=== PATIENT | female | born 1985 | race American Indian/Alaskan Native ===

== ENCOUNTER 2017-08-12 20:04 | Inpatient (IN) | payer MEDICAID ==
[2017-08-12] MEDS ORDERED: POLYCILLIN/NS 2 GM/100 ML 2 GM/100 ML BAG IV ONE ×2 (20:57→21:26)
[2017-08-12] MEDS ORDERED: LACTATED RINGERS 1,000 ML ONE (20:57)
--- NOTE | 2017-08-12 21:25 | History and Physical Report ---
History of Present Illness Date of examination: 08/12/17 Date of admission: 08/12/17 21:02 Chief complaint: Painful contractions History of present illness: 32-year-old at 39+ weeks' gestation presents in active labor, she is a [facility] patient. course has been unremarkable per patient. 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: denies: chlamydia, gonorrhea, hepatitis B, hepatitis C, herpes, HIV , syphilis - Obstetrical History Expected Date of Delivery: 08/16/17 Actual Gestation: 39 Week(s) 3 Day(s) : 6 Para: 5 Medications and Allergies Allergies Allergy/AdvReac Type Severity Reaction Status Date / Time No Known Allergies Allergy Verified 05/03/16 09:03 Home Medications Medication Instructions Recorded Confirmed Last Taken Type Biotin/Keratin [Biotin Plus 1 each PO DAILY 05/03/16 05/03/16 Unknown History Keratin Tablet] Ferrous Sulfate [Feosol] 325 mg PO QDAY 05/03/16 05/03/16 05/02/16 History Vit-Fe Fumar-FA [ 1 tab PO QDAY 05/03/16 05/03/16 05/02/16 History Vitamin] Review of Systems Constitutional: no fever, no chills Cardiovascular: no chest pain, no syncope, no lightheadedness, no shortness of breath, no dyspnea on exertion, no high blood pressure, no decreased exercise tolerance Respiratory: no cough, no excessive sputum, no shortness of breath, no dyspnea on exertion Gastrointestinal: no abdominal pain, no nausea, no vomiting Genitourinary: contractions, no vaginal bleeding, no vaginal discharge, no leakage of fluid - Vital Signs Vital signs: Vital Signs Pulse BP 77 135/80 08/12/17 20:26 08/12/17 20:26 Temp Pulse Resp BP Pulse Ox 108 H 135/80 100 08/12/17 21:21 08/12/17 20:26 08/12/17 21:21 - Physical Exam Abdomen: Positive: normal appearance, soft. Negative: distention, tenderness, guarding, rigidity Genitourinary (Female): Positive: normal external genitalia Uterus: Positive: enlarged (EFW ~ 3400). Negative: tender Adnexa: both: normal Extremities: Positive: normal - Obstetrical FHR: category 1 Cervical Dilatation: 8.5 station: -1 Results All other labs normal. Assessment and Plan A: 32-year-old G65 at 39+3 in active labor -Cat 1 tracing P: -Admit -Routine labs -Epidural when necessary -Anticipate normal vaginal delivery - Patient Problems (1) 39 weeks gestation of Current Visit: Yes Status: Acute (2) Active labor at term Current Visit: Yes Status: Acute (3) Grand multipara in labor Current Visit: Yes Status: Acute Qualifiers: Trimester: T
[2017-08-12] MEDS ORDERED: SUBLIMAZE IV PRN (21:26)
[2017-08-12] MEDS ORDERED: BRETHINE IVP PRN (21:26)
[2017-08-12] MEDS ORDERED: BRETHINE SUB-Q PRN (21:26)
[2017-08-12] MEDS ORDERED: MINERAL OIL PO PRN (21:26)
[2017-08-12] MEDS ORDERED: ePHEDrine SULFATE IV PRN (21:26)
[2017-08-12] MEDS ORDERED: XYLOCAINE 2% INFILTRATI ONE (21:26)
[2017-08-12] MEDS ORDERED: CYTOTEC ONE (21:50)
[2017-08-12] MEDS ORDERED: LACTATED RINGERS 1,000 ML IV SCH (22:00)
[2017-08-12] MEDS ORDERED: PITOCin/NS 30 UNIT/500ML 30 UNITS/500 ML BAG IV SCH ×2 (22:00)
[2017-08-12] MEDS ORDERED: PITOCin/NS 20 UNIT/1000ML DRIP 20 UNITS/1,000 ML BAG IV SCH (22:00)
[2017-08-12] MEDS ORDERED: ZOFRAN IV PRN (22:13)
[2017-08-12] MEDS ORDERED: LANSINOH TP PRN (22:13)
[2017-08-12] MEDS ORDERED: PHENERGAN PR PRN (22:13)
[2017-08-12] MEDS ORDERED: DULCOLAX PR PRN (22:13)
[2017-08-12] MEDS ORDERED: PHENERGAN PO PRN (22:13)
[2017-08-12] MEDS ORDERED: ANUCORT-HC PR PRN (22:13)
[2017-08-12] MEDS ORDERED: TUCKS PAD TP PRN (22:13)
[2017-08-12] MEDS ORDERED: BENADRYL PO PRN (22:13)
[2017-08-12] MEDS ORDERED: MILK OF MAGNESIA PO PRN (22:13)
[2017-08-12] MEDS ORDERED: CYTOTEC PR ONE (22:13)
[2017-08-12] MEDS ORDERED: TYLENOL PO PRN (22:13)
--- NOTE | 2017-08-12 22:13 | Procedure Note ---
OB Delivery Note - Delivery Date of Delivery: 08/12/17 Surgeon: HALINA MORGAN Estimated blood loss: 100cc - Vaginal Delivery presentation: vertex Delivery position: OA Intrapartum events: none Delivery induction: none Delivery monitor: external FHT, external uterine Route of delivery: Delivery placenta: spontaneous Delivery cord: 3 umbilical vessels Episiotomy: none Delivery laceration: none Anesthesia: none - A at 1 minute: 9 at 5 minutes: 9 Infant Gender: Male (Del @ 22:05, weight is 5 lbs. 15 oz. or 2679 g)
[2017-08-12 22:20] LABS: Hematocrit 34.8 % (30.3-42.9); Hemoglobin 11.3 gm/dl (10.1-14.3); Mean Corpuscular HGB Conc 33 % (30-34); Mean Corpuscular Hemoglobin 29 pg (28-32); Mean Corpuscular Volume 90 fl (79-97); Platelet Count 170 K/mm3 (140-440); Red Blood Count 3.86 M/mm3 (3.65-5.03); Red Cell Distribution Width 14.4 % (13.2-15.2)
[2017-08-12] MEDS ORDERED: TYLENOL ONE (22:22)
[2017-08-12] MEDS: TYLENOL PO PRN (22:35)
[2017-08-12] MEDS ORDERED: MAGNESIUM SULFATE 4GM/100ML 4 GM/100 ML BAG IV ONE (22:50)
[2017-08-12] MEDS ORDERED: MAGNESIUM SULFATE 40GM/1000ML 40 GM/1,000 ML BAG IV SCH (23:00)
[2017-08-12] MEDS ORDERED: SODIUM CHLORIDE FLUSH SYRINGE 10 ML IV PRN (23:00)
[2017-08-13] MEDS ORDERED: POLYCILLIN/NS 1 GM/50 ML 1 GM/50 ML BAG IV SCH (01:00)
[2017-08-13] MEDS: MOTRIN PO SCH ×3 (03:11→18:04)
--- NOTE | 2017-08-13 06:49 | Event Note ---
Date: 08/13/17 Late note: Patient with sudden increase in blood pressure after delivery, BP ranged 150-160 /70 to 90s. She was asymptomatic for pre-E. magnesium was started last night per protocol. On review this morning, blood pressure at acceptable levels and she is asymptomatic. Will stop magnesium at this time.
[2017-08-13] MEDS: NORCO 5/325 PO PRN (08:49)
--- NOTE | 2017-08-13 09:32 | Progress Note ---
Assessment and Plan A: PPD #1 -stable P: Discharge home in am Subjective - Subjective Date of service: 08/13/17 Patient reports: appetite normal [place]: doing well Objective - Vital Signs Latest vital signs: Vital Signs Temp Pulse Resp BP BP Pulse Ox 08/13/17 06:00 97.8 F 69 20 140/89 08/13/17 04:25 97.8 F 70 20 129/86 08/13/17 02:30 98.6 F 81 20 124/79 08/13/17 00:45 98.8 F 74 20 129/86 08/13/17 00:18 72 132/79 08/13/17 00:03 83 135/80 08/13/17 00:00 81 98 08/12/17 23:55 83 99 08/12/17 23:50 85 99 08/12/17 23:48 83 129/77 08/12/17 23:45 76 98 08/12/17 23:40 69 98 08/12/17 23:35 75 98 08/12/17 23:11 76 146/83 08/12/17 22:56 80 151/77 08/12/17 22:49 64 152/85 08/12/17 22:41 75 149/77 08/12/17 22:29 83 99 08/12/17 22:26 77 163/94 08/12/17 22:24 81 99 08/12/17 22:02 113 H 99 08/12/17 21:57 104 H 100 08/12/17 21:53 98.5 F 99 H 139/93 08/12/17 21:36 94 H 100 08/12/17 21:33 83 L 08/12/17 21:31 111 H 100 08/12/17 21:30 95 H 139/93 08/12/17 21:26 96 H 100 08/12/17 21:21 108 H 100 08/12/17 21:16 100 H 98 08/12/17 21:11 86 100 08/12/17 21:06 91 H 99 08/12/17 21:01 91 H 100 08/12/17 20:47 90 94 08/12/17 20:46 81 91 08/12/17 20:40 81 93 08/12/17 20:38 83 99 08/12/17 20:33 90 98 08/12/17 20:28 88 99 08/12/17 20:26 77 135/80 Intake and Output 08/12/17 08/13/17 08/13/17 22:59 06:59 14:59 Intake Total 240 Output Total 900 Balance -660 Intake: Oral 240 Output: Urine 900 Uretheral ([place]) 900 Other: Total, Intake Amount 120 Weight 170 lb Estimated Blood Loss 100 - Exam Breasts: Present: deferred Cardiovascular: Present: Regular rate Lungs: Present: Clear to auscultation Abdomen: Present: soft Vulva: both: normal Uterus: Present: fundal height below umbilicus Extremities: Present: normal Deep Tendon Reflex Grade: Normal +2
--- NOTE | 2017-08-13 09:34 | Discharge Summary ---
Providers - Providers Date of Admission: 08/12/17 21:02 Date of discharge: 08/14/17 Attending physician: LISSY FLETCHER MD Primary care physician: LISSY FLETCHER MD Hospitalization Reason for admission: active labor Delivery: Episiotomy: none Laceration: none complications: none Discharge diagnosis: IUP at term delivered [place] baby: male Condition at discharge: Good Disposition: DC-01 TO HOME OR SELFCARE Plan - Discharge Medications Prescriptions: HYDROcodone/APAP 5-325 [[place] 5/325] 1 each PO Q6HR PRN #7 tablet PRN Reason: Pain Ibuprofen [Motrin 600 MG tab] 600 mg PO Q8H PRN #30 tablet PRN Reason: Pain Multivitamin with Iron [Multivitamins with Iron] 1 each PO DAILY #30 tablet - Provider Discharge Summary Activity: routine, no sex for 6 weeks, no strenuous exercise Diet: routine Additional instructions: [] Smoking cessation referral if applicable(refer to patient education folder for contact #) [] Refer to [facility] Booklet Call your doctor immediately for: * Fever > 100.5 * Heavy vaginal bleeding ( >1 pad per hour) * Severe persistent headache * Shortness of breath * Reddened, hot, painful area to leg or breast * Drainage or odor from incision. * Keep incision clean and dry at all times and follow doctor's instructions regarding bathing/showering - Follow up plan Follow up: LISSY FLETCHER MD [Primary Care Provider] - 6 Weeks
[2017-08-13] MEDS ORDERED: Fluarix Quad 2017-2018(36 MOS+) IM ONE (12:00)
[2017-08-13] MEDS: PRENATAL VITAMIN PO SCH (12:27)
[2017-08-13] MEDS: COLACE PO SCH ×2 (12:27→21:53)
[2017-08-13] MEDS: FEOSOL PO SCH ×2 (12:28→21:53)
[2017-08-13 13:01] LABS: Hematocrit 31.2 % (30.3-42.9); Hemoglobin 10.4 gm/dl (10.1-14.3)
[2017-08-13] MEDS: SENOKOT S PO SCH (21:53)
[2017-08-14] MEDS: MOTRIN PO SCH ×5 (05:07→17:12)
[2017-08-14] MEDS ORDERED: BOOSTRIX IM ONE (06:00)
[2017-08-14] MEDS: PRENATAL VITAMIN PO SCH (09:16)
[2017-08-14] MEDS: SENOKOT S PO SCH ×2 (09:17→10:00)
[2017-08-14] MEDS: FEOSOL PO SCH (09:18)
[2017-08-14] MEDS: NORCO 5/325 PO PRN (11:49)
[2017-08-14] MEDS: TYLENOL PO PRN (17:17)
[2017-08-14 18:49] VITALS: BP 130/76
== END 2017-08-14 23:10 | disposition home or self-care (01) | DRG 775 ==
LOC: TRG 20:04 → LD 21:02 → OB 08-13 00:17
PROVIDERS: ADMIT Obstetrics & Gynecology; ATTEND Obstetrics & Gynecology
PROC: 10E0XZZ Delivery of Products of Conception, External Approach (ICD-10-PCS; principal; 2017-08-12)
PROC: 3E0234Z Introduction of Serum, Toxoid and Vaccine into Muscle, Percutaneous Approach (ICD-10-PCS; 2017-08-12)
DX: O80 Encounter for full-term uncomplicated delivery (principal); Z3A.39 39 weeks gestation of pregnancy; Z37.0 Single live birth; Z23 Encounter for immunization
CPT/HCPCS: 36415; 85014; 85018; 85027; 86850; 86900; 86901; 90471; 90686; 90715; 99211; G0463; J0290; J2590; J3475; J7120